=== PATIENT | male | born 1970 | race African-American/Black ===

== ENCOUNTER 2019-11-24 21:43 | Emergency (ER) | payer OTHER ==
[~2019-11-24] VITALS: Ht 162.6 cm; Wt 59.0 kg
[2019-11-24 21:55] VITALS: BP 132/75
== END 2019-11-25 05:45 | disposition left against medical advice (07) ==
LOC: ER 21:43
DX: Z53.21 Procedure and treatment not carried out due to patient leaving prior to being seen by health care provider (principal)